=== PATIENT | female | born 1980 | race Caucasian/White ===

== ENCOUNTER 2021-09-15 07:06 | Outpatient (CLI) | payer OTHER, SELFPAY ==
--- NOTE | ~2021-09-15 | MM_ITS ---
EXAMINATION: MM screening [facility] w [facility] HISTORY: Baseline screening mammogram TECHNIQUE: Craniocaudal and mediolateral oblique 3-D tomosynthesis images were obtained and synthetic 2-D images were generated. CAD analysis was submitted and interpreted. COMPARISON: None, baseline BREAST PARENCHYMAL COMPOSITION: There are scattered areas of fibroglandular density. FINDINGS: There is no evidence of suspicious mass, calcification, or architectural distortion to sugg est malignancy in either breast. IMPRESSION: 1. No mammographic evidence of malignancy. 2. Recommend routine screening mammography in one year. BI-RADS Category 1: Negative Reviewed, dictated and finalized at location A. 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
== END 2021-09-15 07:07 | disposition home or self-care (01) ==
LOC: CHSIMG 07:09
PROVIDERS: PCP Internal Medicine; Visit Provider Obstetrics & Gynecology
DX: Z12.31 Encounter for screening mammogram for malignant neoplasm of breast (principal)
CPT/HCPCS: 77063; 77067

== ENCOUNTER 2022-11-28 07:16 | Outpatient (CLI) | payer OTHER, SELFPAY ==
--- NOTE | ~2022-11-28 | MM_ITS ---
EXAMINATION: MM screening [facility] w [facility] HISTORY: Screening mammogram TECHNIQUE: Craniocaudal and mediolateral oblique 3-D tomosynthesis images were obtained and synthetic 2-D images were generated. CAD analysis was submitted and interpreted. COMPARISON: 09/15/2021 BREAST PARENCHYMAL COMPOSITION: There are scattered areas of fibroglandular density. FINDINGS: No suspicious mass, calcification, or architectural distortion are identified in either [place] ast to suggest malignancy. There has been no suspicious interval change. IMPRESSION: 1. No mammographic evidence of malignancy. 2. Recommend routine screening mammography in one year. BI-RADS Category 1: Negative Reviewed, dictated and finalized at location A.
== END 2022-11-28 07:17 | disposition home or self-care (01) ==
LOC: CHSIMG 07:18
PROVIDERS: PCP Internal Medicine; Visit Provider Internal Medicine
DX: Z12.31 Encounter for screening mammogram for malignant neoplasm of breast (principal)
CPT/HCPCS: 77063; 77067

== ENCOUNTER 2024-08-14 08:08 | Outpatient (CLI) | payer OTHER, SELFPAY ==
--- NOTE | ~2024-08-14 | MM_ITS ---
EXAMINATION: MM screening [facility] BI w keturah HISTORY: Screening TECHNIQUE: Craniocaudal and mediolateral oblique 3-D tomosynthesis images were obtained and synthetic 2-D images were generated. CAD analysis was submitted and interpreted. COMPARISON: Comparison to multiple prior studies sequentially, with oldest reviewed study dated 09/2021. BREAST PARENCHYMAL COMPOSITION: Not Dense: The breasts are almost entirely fatty. FINDINGS: There is no evidence of suspicious mass, calcification, or architectural distortion to sugg est malignancy in either breast. There has been no suspicious interval change. IMPRESSION: 1. No mammographic evidence of malignancy. 2. Recommend routine screening mammography in one year. BI-RADS Category 1: Negative Reviewed, dictated and finalized at location A. 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
== END 2024-08-14 08:09 | disposition home or self-care (01) ==
LOC: CHSIMG 08:11
PROVIDERS: PCP Internal Medicine; Visit Provider Internal Medicine
DX: Z12.31 Encounter for screening mammogram for malignant neoplasm of breast (principal)
CPT/HCPCS: 77063; 77067

== ENCOUNTER 2024-09-22 15:26 | Outpatient (CLI) | payer OTHER, SELFPAY ==
--- NOTE | ~2024-09-22 | XR_ITS ---
XR abdomen/kub 1V Ordering provider: Althea Mccollum, CHASSIS ENGINEER History: . abdominal pain . Comparison: None. FINDINGS: BOWEL: Nonobstructive bowel gas pattern. ORGANOMEGALY: None. SIGNIFICANT PATHOLOGIC CALCIFICATIONS: Multiple stones in the right kidney. OTHER: No free air is seen under the diaphragm. IMPRESSION: NO ACUTE ABDOMINAL FINDINGS. Multiple stones in the right kidney. Reviewed, dictated and finalized at location A.
[2024-09-22 15:53] LABS: Basophils Absolute Auto 0.09 K/mm3 (0.00-0.10); Basophils Percent Auto 0.7 % (0.0-1.0); Eosinophils Absolute Auto 0.56 K/mm3 (0.02-0.50); Eosinophils Percent Auto 4.1 % (1.0-6.0); Hematocrit 41.9 % (35.0-49.0); Hemoglobin 13.8 g/dL (12.0-15.0); Immature Granulocyte Absolute 0.11 K/mm3 (0.00-0.00); Immature Granulocyte Percent A 0.8 % (0.0-0.0); Lymphocytes Absolute Auto 2.93 K/mm3 (1.10-4.50); Lymphocytes Percent Auto 21.4 % (18.0-42.0); Mean Corpuscular HGB Conc 32.9 g/dL (32-36); Mean Corpuscular Hemoglobin 30.8 pg (27.0-31.0); Mean Corpuscular Volume 93.5 fL (78.0-102.0); Mean Platelet Volume 10.9 fl (9.2-11.8); Monocytes Absolute Auto 0.76 K/mm3 (0.10-0.90); Monocytes Percent Auto 5.6 % (2.0-11.0); Neutrophils Absolute Auto 9.22 K/mm3 (1.70-7.20); Neutrophils Percent Auto 67.4 % (50.0-70.0); Platelet Count Result 361 K/mm3 (150-420); Red Blood Count 4.48 M/mm3 (4.20-5.40); Red Cell Distribution Width 13.2 % (11.6-14.4); White Blood Count 13.7 K/mm3 (4.8-10.8)
[2024-09-22 16:07] LABS: Alanine Aminotransferase 34 U/L (14-59); Alkaline Phosphatase 87 U/L (46-116); Anion Gap 8 mmol/L (4-12); Aspartate Amino Transferase 20 U/L (15-37); Bilirubin,Total 0.3 mg/dL (0.00-1.00); Blood Urea Nitrogen 15 mg/dL (7-18); Calcium 9.6 mg/dL (8.5-10.1); Carbon Dioxide 30 mmol/L (21-32); Chloride 103 mmol/L (98-108); Estimated Glomerular Filt Rate > 60; Glucose 91 mg/dL (70-99); Osmolality Calculated 292 mOsm/kg (285-295); Potassium 3.5 mmol/L (3.5-5.1); Sodium 141 mmol/L (136-145); Total Protein 7.6 g/dL (6.4-8.2)
== END 2024-09-22 15:27 | disposition home or self-care (01) ==
PROVIDERS: PCP Internal Medicine; Visit Provider Nurse Practitioner Family
DX: R10.9 Unspecified abdominal pain (principal); N20.0 Calculus of kidney
CPT/HCPCS: 36415; 74018; 80053; 85025

== ENCOUNTER 2024-09-22 16:38 | Emergency (ER) | payer OTHER, SELFPAY ==
--- NOTE | ~2024-09-22 | CT_ITS ---
EXAMINATION: CT abdomen pelvis w con DATE: 09/22/2024 17:43 INDICATION: left suprapubic abdominal pain TECHNIQUE: Computed tomography (CT) of the abdomen and pelvis was performed with intravenous contrast . Automated exposure control and iterative reconstruction technique were employed. The dose-length pr oduct was 1613.97 mGy-cm. COMPARISON: None. FINDINGS: Lower thorax: Unremarkable Liver: Enlarged. Biliary/Gallbladder: Gallbladder is normal. No bile duct dilation. Pancreas: No mass or duct dilation. Spleen: Normal. Adrenals:No mass. Kidneys: No suspicious mass, obstructing stone, or hydronephrosis. Multiple nonobstructing bilateral renal calculi measuring up to 6 mm on the left and 11 mm on the right. GI tract: No small or large bowel dilation. Short segment, somewhat eccentric wall thickening at the junction of the descending colon and sigmoid colon with surrounding pericolonic inflammatory change a nd a possible associated with inflamed diverticulum. A few scattered diverticuli are noted elsewhere in the colon. Right lower quadrant surgical clips. Appendix not confidently visualized, likely surgic ally absent. Mesentery/Peritoneum: No ascites, mass, or free air. Retroperitoneum: No mass. Pelvis: Pelvic organs are within normal limits. 3.1 cm simple appearing left ovarian cyst. Soft Tissues: 3.1 cm irregular soft tissue density in the deep subcutaneous fat over the right lower abdomen. Bones: No acute osseous finding. IMPRESSION: Hepatomegaly. Bilateral nephrolithiasis without evidence of obstructive uropathy. Possible mild diverticulitis at the junction of the descending colon and sigmoid colon. Recommend rad iographic follow-up after appropriate therapy to ensure resolution and consider colonoscopy referral to exclude a mass lesion. 3.1 cm irregular soft tissue density in the deep subcutaneous fat of the right lower quadrant of unce rtain clinical significance, may represent a hematoma, deep injection granuloma, inflamed lymph node, or other lesion Reviewed, dictated and finalized at location K. IMPRESSION: Hepatomegaly. Bilateral nephrolithiasis without evidence of obstructive uropathy. Possible mild diverticulitis at the junction of the descending colon and sigmoi d colon. Recommend radiographic follow-up after appropriate therapy to ensure r esolution and consider colonoscopy referral to exclude a mass lesion. 3.1 cm irregular soft tissue density in the deep subcutaneous fat of the right lower quadrant of uncertain clinical significance, may represent a hematoma, de ep injection granuloma, inflamed lymph node, or other lesion
[2024-09-22 16:42] VITALS: BP 145/86; PULSE 82; RESP 20; TEMP 36.6; O2SAT 98
--- NOTE | 2024-09-22 16:49 | ED.ABDPAIN ---
HPI - Abdominal Pain General Chief Complaint: Abdominal Pain Stated Complaint: abd pain Time Seen by Provider: 09/22/24 16:46 Source: patient Mode of arrival: ambulatory Limitations: no limitations History of Present Illness HPI narrative: 44 year old female presents to the Emergency Department at the direction of her PCP for further evaluation /CT. Patient has had left suprapubic abdominal pain for 10 days. Pain has been intermittent. No associated symptoms. No nausea, vomiting, diarrhea, constipation, urinary tract symptoms. Patient had OP labs today, but unable to get CT due to insurance regulations. Here for CT. MD elicited complaint: abdominal pain Pertinent past history: none Onset (ago): day(s) (10) Pain Consistency: intermittent Location: LLQ Severity: moderate Quality: sharp Radiation: none Migration to: no migration Exacerbating factors: nothing Relieving factors: nothing Related Data Patient : No Home Medications ?Medication ?Instructions ?Recorded ?Confirmed ?Last Taken ?Type atorvastatin 10 mg tablet 10 mg PO DAILY 09/22/24 Unknown History fenofibrate 160 mg tablet 160 mg PO DAILY 09/22/24 Unknown History losartan 100 1 tablet PO DAILY 09/22/24 Unknown History mg-hydrochlorothiazide 12.5 mg tablet Allergies Allergy/AdvReac Type Severity Reaction Status Date / Time No Known Allergies Allergy Unverified 09/22/24 16:56 Review of Systems Review of Systems: All systems reviewed & are unremarkable except as noted in HPI and below Constitutional: Constitutional: Reports as per HPI, Denies chills and Denies fever(s) Eyes: Eyes: Reports as per HPI ENT: Reports system reviewed and no additional complaints, except as documented Cardiovascular: Cardiovascular: Reports as per HPI and Denies chest pain Respiratory: Respiratory: Reports as per HPI, Denies chest congestion, Denies cough and Denies dyspnea Gastrointestinal: Gastrointestinal: Reports as per HPI, Reports abdominal pain (left suprapubic), Denies constipation, Denies diarrhea, Denies nausea and Denies vomiting Genitourinary: Genitourinary: Reports no additional female genitourinary complaints, Denies dysuria and Denies flank pain Musculoskeletal: Musculoskeletal: Reports no additional musculoskeletal complaints Integumentary/Breasts: Skin/Breast: Reports system reviewed and no additional complaints, except as docu Neurologic: Reports system reviewed and no additional complaints, except as documented [facility] Family History Family History Other Cerebrovascular accident Family history of cardiovascular disease Hypertension Social History Social History Smoking status: Current every day smoker Alcohol intake: current Exam Const: General: healthy appearing Nutritional Appearance: well nourished Orientation/consciousness: patient oriented x3 Limitations: no limitations HENMT: Head: normal to inspection Eyes: Pupils: Equal, round and reactive pupils present EOM: EOMs intact bilaterally Direct Ophthalmoscopy: no photophobia Neck: Neck: normal visual inspection Chest: Chest palpation & inspection: normal inspection of the chest Resp: Effort & Inspection: normal respiratory effort Auscultation: clear to auscultation bilaterally Cardio: Rate: regular rate Rhythm: regular rhythm GI: Inspection: non-distended GI Palp: Yes Soft to palpation, Yes Tenderness to palpation present (GI) (localized to left suprapubic region), No Guarding due to palpation present (GI), No Palpable mass present and No Rebound tenderness present Auscultation: normal bowel sounds : General: Yes bladder normal to palpation Back/Spine/Pelvis: Back: no CVA tenderness Skin: General skin exam: normal color Rashes: no rashes Neuro: General: patient oriented x3 Other: grossly normal Extrem: General: normal to inspection Psych: Mental Status: mental status grossly normal Course Course Emergency Course: 44 y/o female presents to the ED c/o L suprapubic abdominal pain for 10 days. Pain intermittent. No associated symptoms. Had OP labs done today, but unable to get CT OP. PE: localized tenderness L suprapubic region, o/w unremarkable OP Labs: CBC: H/H 13.8/41.9, Plt 361; wbc 13.7 with 67 S, 21 L, 6 M CMP: Na 141, K 3.5, Cl 103, CO2 30, Glc 91, BUN 15, Cr 0.68; LFT's normal KUB: multiple stones in R kidney ED Labs: UA: 3-5 rbc, 1+ blood, 1+ bact UPreg: negative CT Abd/Pelvis: probable diverticulitis at jct of descending and sigmoid colon. 3.1 cm irreg soft tissue density deep SQ fat RLQ Tx: saline lock *reviewed and discussed results with patient. Discussed further management. Patient voices understanding and agreement Rx and Instructions Vital Signs Vital signs: Vital Signs Temperature 36.6 C 09/22/24 16:42 Pulse Rate 82 09/22/24 16:42 Respiratory Rate 20 09/22/24 16:42 Blood Pressure 145/86 H 09/22/24 16:42 Pulse Oximetry 98 09/22/24 16:42 Oxygen Delivery Room Air 09/22/24 16:42 Temperature 36.6 C 09/22/24 16:42 Pulse Rate 82 09/22/24 16:42 Respiratory Rate 20 09/22/24 16:42 Blood Pressure 145/86 H 09/22/24 16:42 Pulse Oximetry 98 09/22/24 16:42 Oxygen Delivery Room Air 09/22/24 16:42 MDM - Abdominal Pain Lab Data Labs: Lab Results 09/22/24 Range/Units 17:00 Urine Color Yellow (Yellow) Urine Appearance Clear (Clear) Urine pH 6.0 (5.0-8.0) Ur Specific [place] >= 1.030 H (1.010-1.020) Urine Protein Negative (Negative) Urine Glucose (UA) Negative (Negative) Urine Ketones Negative (Negative) Ur Blood (Man) 1+ H (Negative) Urine Nitrate Negative (Negative) Urine Bilirubin Negative (Negative) Urine Urobilinogen 0.2 (0.2-1.0) mg/dL Ur Leukocyte Esterase Negative (Negative) Urine RBC 3-5 H (0-2) /hpf Urine WBC None seen (0-3) /hpf Ur Squamous Epith Cells Few (Few) /hpf Urine Bacteria 1+ H (None) /hpf Urine Test Negative Imaging Data Radiologist's impression: ITS Impressions Abdomen/Pelvis CT 09/22/24 17:56 IMPRESSION: Hepatomegaly. Bilateral nephrolithiasis without evidence of obstructive uropathy. Possible mild diverticulitis at the junction of the descending colon and sigmoid colon. Recommend radiographic follow-up after appropriate therapy to ensure resolution and consider colonoscopy referral to exclude a mass lesion. 3.1 cm irregular soft tissue density in the deep subcutaneous fat of the right lower quadrant of uncertain clinical significance, may represent a hematoma, deep injection granuloma, inflamed lymph node, or other lesion Discharge Plan Discharge Clinical Impression: Diverticulitis Patient Disposition: Home, Self-Care Condition: Stable Instructions: Antibiotic Form, Diverticulitis (ED) Additional Instructions: Take medications as prescribed Follow up Primary Care Physician Patient Language: Citizen Of [place] Prescriptions: New metronidazole 500 mg tablet 500 mg PO Q8H Qty: 30 0RF ciprofloxacin HCl [Cipro] 500 mg tablet 500 mg PO Q12H Qty: 20 0RF hydrocodone-acetaminophen 10-325 mg tablet 1 tablet PO Q6H PRN (Reason: pain) Qty: 20 0RF No Action atorvastatin 10 mg tablet 10 mg PO DAILY fenofibrate 160 mg tablet 160 mg PO DAILY losartan-hydrochlorothiazide 100-12.5 mg tablet 1 tablet PO DAILY Follow-up/Referrals: Dinesh Pierre MD [Primary Care Provider] - Time of Disposition: 18:30
[2024-09-22 17:07] LABS: Add Urine Microscopic? YES; Appearance Urine Clear (Clear); Bilirubin Urine Negative (Negative); Blood Urine 1+ (Negative); Color Urine Yellow (Yellow); Glucose Urine UA Negative (Negative); Ketones Urine Negative (Negative); Leukocyte Esterase Ur Negative (Negative); Nitrate Urine Negative (Negative); Protein Urine Negative (Negative); Specific Grav Ur >= 1.030 (1.010-1.020); Urobilinogen Urine 0.2 mg/dL (0.2-1.0)
[2024-09-22 17:09] LABS: Bacteria Urine 1+ /hpf; Squamous Epithelial Cell Urine Few /hpf (Few); WBC Urine None seen /hpf (0-3)
[2024-09-22 17:10] LABS: Pregnancy On Board Control Positive; Urine Pregnancy Test Negative
[2024-09-22 18:33] VITALS: BP 130/86; PULSE 84; RESP 16; TEMP 36.8; O2SAT 97
== END 2024-09-22 18:35 | disposition home or self-care (01) ==
PROVIDERS: Emergency Provider Emergency Medicine; PCP Internal Medicine
DX: K57.92 Diverticulitis of intestine, part unspecified, without perforation or abscess without bleeding (principal); F17.200 Nicotine dependence, unspecified, uncomplicated; Z79.899 Other long term (current) drug therapy
CPT/HCPCS: 74177; 81001; 81025; 99284; Q9967

== ENCOUNTER 2025-02-02 02:16 | Emergency (ER) | payer OTHER, SELFPAY ==
--- NOTE | ~2025-02-02 | CT_ITS ---
EXAMINATION: CT abdomen pelvis wo con DATE: 02/02/2025 03:19 INDICATION: Burning with urination TECHNIQUE: Computed tomography (CT) of the abdomen and pelvis was performed without intravenous contr ast. The dose-length product was 1094.02 mGy-cm. Automated exposure control and iterative reconstruct ion technique were employed. COMPARISON: CT dated 09/22/2024 FINDINGS: Lung bases unremarkable. No significant pleural or pericardial effusion. Heart size normal. No significant vascular abnormality. There are multiple nonobstructing bilateral renal stones. There is minimal right hydronephrosis. There is mild proximal periureteral stranding. Cannot excluded asce nding urinary tract infection. No lymphadenopathy. No significant vascular abnormality. Liver, spleen, pancreas, adrenal glands are unremarkable. Nonobstructive bowel gas pattern. No abnorm al pelvic masses or fluid collections. Irregular nodular soft tissue right inguinal region involving the subcutaneous tissues measuring up to 2.6 cm, slightly decreased compared with prior study. Differ ential diagnosis includes posttraumatic hematoma, injection granuloma, reactive lymph node. No acute osseous abnormality. IMPRESSION: 1. Nonobstructing bilateral nephrolithiasis. Mild stranding surrounding the proximal ureter. Cannot e xclude ascending urinary tract infection. Clinically correlate. Reviewed, dictated and finalized at location A. IMPRESSION: 1. Nonobstructing bilateral nephrolithiasis. Mild stranding surrounding the pro ximal ureter. Cannot exclude ascending urinary tract infection. Clinically lula elate.
[2025-02-02 02:16] VITALS: BP 149/97; PULSE 95; RESP 16; TEMP 35.8; O2SAT 97
--- OUTSIDE RECORDS SUMMARY | 2025-02-02 02:21 | XMS_ITS ---
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 Unavailable JOSE GUTIERERS Primary Unavailable Immunization Immunization Date Status Additional Notes Code Code System influenza, unspecified formulation 04/08/2018 Completed 88 CVX Tdap 05/10/2022 Completed 115 CVX Influenza, split virus, trivalent, preservative 04/16/2014 Completed 141 CVX Influenza, split virus, quadrivalent, PF 05/10/2022 Completed 150 CVX Results TEST URINE - Colle ct Date/Time: 10/29/2024 08:43 [facility] ID: [id number] [address] [place] [address], [id number] LOINC: Test Value Unit Reference Range Code Code System Flag URINE PREG NEGATIVE Social History Type Status Start Date End Date Code Code Syst em Smoking History Unknown if ever smoked [address] Sex Female Vital Signs Vital Sign Value Unit [place] Value [place] Unit Date/Time Recent/Initial? Code Code System Body Mass Index 42.77 kg/m2 10/29/2024 08:45 Most Recent 97165 -5 LOINC Body Mass Index 42.77 kg/m2 10/21/2024 13:56 Initial 73774 -5 LOINC Systolic Blood Pressure 128 mm[Hg] 10/29/2024 08:51 Initial 8480- 6 LOINC Diastolic Blood Pressure 80 mm[Hg] 10/29/2024 08:51 Initial 8462- 4 LOINC Body Surface Area 2.37 m2 10/29/2024 08:45 Most Recent 3140- 1 LOINC Body Surface Area 2.37 m2 10/21/2024 13:56 Initial 3140- 1 LOINC Height 167.640 0 cm 66.00 in 10/29/2024 08:45 Most Recent 8302- 2 LOINC Height 167.640 0 cm 66.00 in 10/21/2024 13:56 Initial 8302- 2 LOINC O2 Saturation 100 % 2024 08:51 Initial 06238 -5 LOINC Pulse 87.0 /min 10/29/2024 08:51 Initial 8867- 4 LOINC Respiration 18 /min 10/30/19 08:51 Initial 9279- 1 LOINC Temperature 36.7 Leigh 98.0 F 10/30/19 08:51 Initial 8310- 5 LOINC Weight 120.20 kg 265.00 lbs 10/29/2024 08:45 Most Recent 05230 -7 LOINC Weight 120.20 kg 265.00 lbs 10/21/2024 13:56 Initial 68853 -7 [facility] Medications Medication Start Date End Date Route Frequency Dose Code Code System Medication Instructions Home Meds Atorvastatin Calcium 10MG Oral Tablet 10/29/2024 Unknown ORAL ONCE A DAY 10 MILLIGRAMS 584296 RxNorm TAKE 10 MILLIGRAMS ORAL ONCE A DAY Cetirizine 10MG Oral Tablet 10/29/2024 Unknown ORAL NEEDED 10 MILLIGRAMS 2663874 RxNorm TAKE 10 MILLIGRAMS ORAL NEEDED Fenofibrate 160MG Oral Tablet 10/29/2024 Unknown ORAL ONCE A DAY 160 MILLIGRAMS 853072 RxNorm TAKE 160 MILLIGRAMS ORAL ONCE A DAY Fiber Gummies 2GM Oral Tablet, Chewable 10/29/2024 Unknown ORAL 8 MILLIGRAMS RxNorm TAKE 8 MILLIGRAMS ORAL Fluticasone Prop 0.05MG/1Actuat ion Nasal [place] 10/29/2024 Unknown NASAL ONCE A DAY 1 unit(s) RxNorm 1 EACH NASAL ONCE A DAY Losartan Potassium-hydr oCHLOROthiazid e 100MG-12.5MG Oral Tablet 10/29/2024 Unknown ORAL ONCE A DAY 1 unit(s) 448822 RxNorm TAKE 1 EACH ORAL ONCE A DAY Hospital Discharge Instructions Should you have any questions prior to discharge, please contact a member of your healthcare team. If you have left the hospital and have any questions, please contact your primary care physician. Reason For Referral No Data Found Procedures Procedure Name Date Status Code Code Syste m APPENDECTOMY completed [id number] SNOMEDCT Hernia repair completed 19016579 SNOMEDCT History of tubal ligation completed 487914997 SNOMEDCT Colonoscopy, flexible; diagn ostic, including collection of specimen(s) by 10/29/2024 completed 45966 CPT History of tonsillectomy completed 150926782 SNOMEDCT DELIVERY completed 63861 CPT Anesthesia for lower intesti nal endoscopic procedures, endoscope introduce 10/29/2024 completed 58209 CPT Allergies and Adverse Reactions Allergy Substance Reaction Severity Start Date Concern Status Co de Code System No Known Allergies Active 831289135 SNO MED-CT Plan of Treatment Colonoscopy 10/29/2024 Encounters Encounter Diagnosis Start Date Code Code Sys tem Abnormal findings on diagnos tic imaging of other parts of digestive tract 10/29/2024 SNOMED-CT Personal Care Team Section Performer Name Performer Role Active Date Inactive Da brandin Church PCP - Primary care physician 2024-10-26 2024-10-29 NENITA GARCIA PCP - Primary care physician 2024-10-29 Procedures Notes
--- NOTE | 2025-02-02 02:36 | ED_ITS ---
HPI - Female Genitourinary General Chief complaint: Urogenital-Female Stated complaint: urogenital Time Seen by Provider: 02/02/25 02:25 Source: patient Mode of arrival: ambulatory Limitations: no limitations History of Present Illness HPI Narrative: Patient is a 45-year-old female with urinary symptoms over the past week. He is having burning of dysuria for the past week. She saw another doctor in this past week and they gave her Macrobid for UTI. Symptoms did proceed to get better and as of today, the symptoms have returned if not worse. pain is associated in the right lower back. Patient has chronic microscopic hematuria on urinalysis. MD elicited complaint: dysuria and UTI Pertinent past history: other ( Kidney stones without acute events, hypertension) Onset (ago): week(s) ( 1) Location of symptoms: urethra Severity: moderate Female Urogenital Radiation: Suprapubic Severity scale (1-10): 4 Quality of pain: sharp and burning Consistency: constant Vaginal discharge: none Vaginal bleeding: none Urinary symptoms: Dysuria Exacerbating factors: urination Relieving factors: none Associated symptoms: denies other symptoms Treatment prior to arrival: other ( Macrobid) Patient : No Related Data Home Medications ?Medication ?Instructions ?Recorded ?Confirmed ?Last Taken ?Type atorvastatin 10 mg tablet 10 mg PO DAILY 09/22/24 12/26/24 Unknown History fenofibrate 160 mg tablet 160 mg PO DAILY 09/22/24 12/26/24 Unknown History losartan 100 1 tablet PO DAILY 09/22/24 12/26/24 Unknown History mg-hydrochlorothiazide 12.5 mg tablet Allergies Allergy/AdvReac Type Severity Reaction Status Date / Time No Known Allergies Allergy Verified 02/02/25 02:50 Review of Systems 2 Review of Systems: All systems reviewed & are unremarkable except as noted in HPI and below Constitutional: Constitutional: Reports no additional constitutional complaints Eyes: Eyes: Reports no additional eye complaints ENT: Reports system reviewed and no additional complaints, except as documented Cardiovascular: Cardiovascular: Reports no additional cardiovascular complaints Respiratory: Respiratory: Reports no additional respiratory complaints Gastrointestinal: Gastrointestinal: Reports no additional gastrointestinal complaints Genitourinary: Genitourinary: Reports no additional female genitourinary complaints Musculoskeletal: Musculoskeletal: Reports no additional musculoskeletal complaints Integumentary/Breasts: Skin/Breast: Reports system reviewed and no additional complaints, except as docu Neurologic: Reports system reviewed and no additional complaints, except as documented Psychiatric: Psychiatric: Reports no additional psychiatric complaints Endocrine: Endocrine: Reports no additional endocrine complaints Hematologic/Lymphatic: Hematologic/Lymphatic: Reports no additional hematologic/lymphatic complaints Allergic/Immunologic: Allergic/Immunologic: Reports no additional allergic/immunologic complaints PMFSH Surgical History Surgical History Hx of colonoscopy 2024 Hx of hernia repair 2016 Hx of section 2012 Hx of appendectomy 1995 Hx of tonsillectomy 1984 Family History Family History Mother Hypertension Sibling Hypertension Grandparent Hypertension Heart disease Other Cerebrovascular accident Family history of cardiovascular disease Malignant neoplasm of prostate Social History Social History Smoking status: Current every day smoker Tobacco type: cigarettes Alcohol intake: current Drinks per week: 14 Substance use: never Substance use type: does not use Do You Feel Safe in your Home?: Yes Lack of Transportation: No Lack of Food: Never True Current Housing: I Have Housing Concerned About Future Housing: No Difficulty Paying Gas/Electric Bills: No Difficulty Paying for Meds: No Currently Unemployed: No Education: Bachelor's Degree Difficulty w/ Childcare or Family Care: No Living arrangements: with family Occupation/Education: occupation Agree to blood products: Yes Exam 2 Const: General: healthy appearing Nutritional Appearance: well nourished Orientation/consciousness: patient oriented x3 HENMT: Head: normal to inspection Ears: external ears normal F kimberly/Nose/Sinus: Normal external nose present Eyes: Conjunctivae: conjunctivae normal Pupils: Equal, round and reactive pupils present EOM: EOMs intact bilaterally Neck: Neck: normal visual inspection Chest: Chest palpation & inspection: normal inspection of the chest Resp: Effort & Inspection: normal respiratory effort and not labored A uscultation: clear to auscultation bilaterally and no crackles Cardio: Rate: regular rate Rhythm: regular rhythm Heart sounds: no murmurs GI: Inspection: non-distended GI Palp: Yes Soft to palpation and No Tenderness to palpation present (GI) Auscultation: normal bowel sounds : General: Yes bladder normal to palpation Back/Spine/Pelvis: Back: no CVA tenderness Skin: General skin exam: normal color Rashes: no rashes Wounds: no wounds Neuro: General: patient oriented x3, moves all extremities and no meningeal signs Cranial nerves: Yes Nystagmus not present Extrem: General: normal to inspection Psych: Appearance: grossly normal Mental Status: mental status grossly normal Affect: normal affect Course Vital Signs Vital signs: Vital Signs Temperature 35.8 C L 02/02/25 02:16 Pulse Rate 95 02/02/25 02:16 Respiratory Rate 16 02/02/25 02:16 Blood Pressure 149/97 H 02/02/25 02:16 Pulse Oximetry 97 02/02/25 02:16 Oxygen Delivery Room Air 02/02/25 02:16 Temperature 35.8 C L 02/02/25 02:16 Pulse Rate 95 02/02/25 02:16 Respiratory Rate 16 02/02/25 02:16 Blood Pressure 149/97 H 02/02/25 02:16 Pulse Oximetry 97 02/02/25 02:16 Oxygen Delivery Room Air 02/02/25 02:16 MDM - Female Genitourinary MDM Narrative Medical decision making narrative: Patient is a 45-year-old female with urinary symptoms for the past week in specifically today after use of Macrobid without good results. Urinalysis and urine preg. Levaquin and Pyridium. Rocephin IM. Lab Data Attestation: I reviewed the patient's lab results. 02/02/25 03:38 02/02/25 03:38 Labs: Lab Results 02/02/25 02/02/25 02/02/25 Range/Units 02:22 02:38 03:38 WBC 15.3 H (4.8-10.8) K/mm3 RBC 4.75 (4.20-5.40) M/mm3 Hgb 15.0 (12.0-15.0) g/dL Hct 43.3 (35.0-49.0) % MCV 91.2 (78.0-102.0) fL MCH 31.6 H (27.0-31.0) pg MCHC 34.6 (32-36) g/dL RDW 12.6 (11.6-14.4) % Plt Count 315 (150-420) K/mm3 MPV 10.7 (9.2-11.8) fl Immature Gran % (Auto) 0.8 H (0.0-0.0) % Neut % (Auto) 72.9 H (50.0-70.0) % Lymph % (Auto) 15.1 L (18.0-42.0) % [place] % (Auto) 5.7 (2.0-11.0) % Eos % (Auto) 4.7 (1.0-6.0) % Baso % (Auto) 0.8 (0.0-1.0) % Lymph # (Auto) 2.32 (1.10-4.50) K/mm3 [place] # (Auto) 0.87 (0.10-0.90) K/mm3 Eos # (Auto) 0.72 H (0.02-0.50) K/mm3 Baso # (Auto) 0.12 H (0.00-0.10) K/mm3 Abs Immat Gran (auto) 0.12 H (0.00-0.00) K/mm3 Absolute Neuts (auto) 11.17 H (1.70-7.20) K/mm3 Absolute Nucleated RBC 0.00 (0.00-0.00) K/mm3 Nucleated RBC % 0.0 (0-0.0) % Sodium 135 L (137-145) mmol/L Potassium 3.4 (3.4-5.0) mmol/L Chloride 103 (98-107) mmol/L Carbon Dioxide 24 (22-30) mmol/L Anion Gap 8 (4-12) mmol/L BUN 14 (7-17) mg/dL Creatinine 0.72 (0.7-1.0) mg/dL Estim Creat Clear Calc 112 ml/min Estimated GFR > 60 (59 - ) Glucose 98 (65-110) mg/dL Calculated Osmolality 280 L (285-295) mOsm/kg Lactic Acid 2.2 H (0.4-2.0) mmol/L Calcium 9.7 (8.4-10.2) mg/dL Total Bilirubin 0.7 (0.2-1.3) mg/dL AST 40 H (14-36) U/L ALT 40 H (6-35) U/L Alkaline Phosphatase 76 (38-126) U/L Total Protein 7.7 (6.3-8.2) g/dL Albumin 4.6 (3.5-5.1) g/dL Urine Color Cancelled Dark yellow Urine Appearance Cancelled Turbid A Urine pH Cancelled 6.0 Ur Specific [place] Cancelled >= 1.030 H Urine Protein Cancelled 3+ H Urine Glucose (UA) Cancelled Negative Urine Ketones Cancelled Trace H Ur Blood (Man) Cancelled 2+ H Urine Nitrate Cancelled Positive H Urine Bilirubin Cancelled Negative Urine Urobilinogen Cancelled 0.2 Ur Leukocyte Esterase Cancelled Leukocyte Esterase Rfl 2+ H (Negative) SUNIL/UL Urine RBC Cancelled >100 H Urine WBC Cancelled >100 Urine WBC Clumps Cancelled Present H Ur Squamous Epith Cells Cancelled Ur Transition Epith Cell Cancelled Ur Renal Epithelial Cell Cancelled Romulo Biurate Crystals Cancelled Calcium Carbonate Cryst Cancelled Calcium Phosphate Cryst Cancelled Calcium Oxalate Crystal Cancelled Leucine Crystals Cancelled Cystine Crystals Cancelled Uric Acid Crystals Cancelled Triple Phos Crystals Cancelled Sulfonamide Crystals Cancelled Cholesterol Crystals Cancelled Tyrosine Crystals Cancelled Hippuric Acid Crystals Cancelled Bilirubin Crystals Cancelled Amorphous Sediment Cancelled Heavy H Other Sediment Cancelled Urine Bacteria Cancelled 4+ H Urine Casts Cancelled Cellular Casts Cancelled Epithelial Casts Cancelled Fatty Casts Cancelled Hyaline Casts Cancelled Granular Casts Cancelled Waxy Casts Cancelled Broad Casts Cancelled RBC Casts Cancelled WBC Casts Cancelled Urine Starch Cancelled Urine Mucus Cancelled Heavy H Urine Trichomonas Cancelled Urine Yeast (Budding) Cancelled Ur Oval Fat Bodies Cancelled Urine Test Negative Sperm Presence Cancelled Imaging Data Attestation: I personally reviewed and interpreted this imaging study as follows: Radiologist's impression: CT scan of the abdomen and pelvis shows ureteritis on the right without hydronephrosis or stones Discharge Plan Discharge Clinical Impression: Ureteritis due to infection UTI (urinary tract infection) Qualifiers: Urinary tract infection type: acute cystitis Hematuria presence: with hematuria Qualified Code(s): N30.01 - Acute cystitis with hematuria Patient Disposition: Home Condition: Stable Instructions: Antibiotic Form, Urinary Tract Infection in Women (DC), Kidney Infection (ED) Patient Language: Spanish Prescriptions: New levofloxacin 750 mg tablet 750 mg PO DAILY Qty: 7 0RF phenazopyridine [Pyridium] 200 mg tablet 200 mg PO TID PRN (Reason: pain) 2 Days Qty: 6 0RF No Action atorvastatin 10 mg tablet 10 mg PO DAILY fenofibrate 160 mg tablet 160 mg PO DAILY losartan-hydrochlorothiazide 100-12.5 mg tablet 1 tablet PO DAILY Follow-up/Referrals: Dinesh Pierre MD [Primary Care Provider] - Time of Disposition: 04:34
[2025-02-02 02:52] LABS: Pregnancy On Board Control Positive
[2025-02-02 02:53] LABS: Appearance Urine Turbid (Clear)
[2025-02-02 02:54] LABS: Glucose Urine UA Negative (Negative); Nitrate Urine Positive (Negative); Specific Grav Ur >= 1.030 (1.010-1.020)
[2025-02-02 02:55] LABS: Add Urine Microscopic? YES; Leukocyte Esterase Ur 2+ LEU/UL (Negative)
--- NOTE | 2025-02-02 03:02 | PC.NURSE ---
ERP DR Mccarthy AT BEDSIDE PROVIDING PT UPDATE INCLUDING PLAN OF CARE AND RESULTS OF URINALYSIS.
--- NOTE | 2025-02-02 03:15 | PC.NURSE ---
PT RETURNED FROM IMAGING VIA WHEELCHAIR PER PATIENT MONITOR. AWAITING RESULTS. CALL LIGHT WITHIN REACH, RN MONITORING.
[2025-02-02 03:43] LABS: Hematocrit 43.3 % (35.0-49.0); Hemoglobin 15.0 g/dL (12.0-15.0); Immature Granulocyte Percent A 0.8 % (0.0-0.0); Lymphocytes Absolute Auto 2.32 K/mm3 (1.10-4.50); Mean Corpuscular HGB Conc 34.6 g/dL (32-36); Mean Corpuscular Hemoglobin 31.6 pg (27.0-31.0); Mean Corpuscular Volume 91.2 fL (78.0-102.0); Nucleated Red Blood Cells Absolute Auto 0.00 K/mm3 (0.00-0.00); Nucleated Red Blood Cells Perc 0.0 % (0-0.0); Platelet Count Result 315 K/mm3 (150-420); Red Blood Count 4.75 M/mm3 (4.20-5.40); White Blood Count 15.3 K/mm3 (4.8-10.8)
[2025-02-02 04:11] LABS: Alanine Aminotransferase 40 U/L (6-35); Albumin Level 4.6 g/dL (3.5-5.1); Alkaline Phosphatase 76 U/L (38-126); Anion Gap 8 mmol/L (4-12); Aspartate Amino Transferase 40 U/L (14-36); Bilirubin,Total 0.7 mg/dL (0.2-1.3); Blood Urea Nitrogen 14 mg/dL (7-17); Calcium 9.7 mg/dL (8.4-10.2); Carbon Dioxide 24 mmol/L (22-30); Chloride 103 mmol/L (98-107); Estimated CRCL calculation 112 ml/min; Estimated Glomerular Filt Rate > 60; Glucose 98 mg/dL (65-110); Osmolality Calculated 280 mOsm/kg (285-295); Potassium 3.4 mmol/L (3.4-5.0); Sodium 135 mmol/L (137-145); Total Protein 7.7 g/dL (6.3-8.2)
--- NOTE | 2025-02-02 04:24 | PC.NURSE ---
DR Mccarthy at patient bedside at this time providing update including results and plan of care.
[2025-02-02 04:35] VITALS: BP 128/85; PULSE 86; RESP 16; TEMP 36.9; O2SAT 96
[2025-02-02] MEDS: cefTRIAXone 1 GM, LIDOCAINE 1% LOCAL INJ 2.1 ML IM (04:39)
--- NOTE | 2025-02-04 12:33 | PC.NURSE ---
PRELIMINARY BLOOD CULTURE NO GROWTH DETECTED AT THIS TIME
--- NOTE | 2025-02-04 12:57 | PC.NURSE ---
PRELIMINARY URINE CULTURE POSITIVE FOR E COLI PT ON LEVAQUIN 750MG DAILY FOR [address] QURESHI WILL WAIT FOR SENSITIVITY REPORT TO MAKE ANY CHANGES
--- NOTE | 2025-02-05 12:25 | PC.NURSE ---
PRELIMINARY BLOOD CULTURE REPORT; NO GROWTH IN 24 HOURS.
--- NOTE | 2025-02-05 12:26 | PC.NURSE ---
FINAL URINE CULTURE REPORT; ESCHERICHIA COLI; PATIENT DISCHARGED ON LEVOFLOXACIN; NO CHANGE IN TREATMENT NEEDED PER DR. HUANG, CULTURE SUSCEPTIBLE
--- NOTE | 2025-02-06 12:21 | PC.NURSE ---
blood culture, preliminary, no growth
--- NOTE | 2025-02-09 12:57 | PC.NURSE ---
FINAL BLOOD CULTURE REPORT; NO GROWTH IN 5 DAYS.
== END 2025-02-02 04:56 | disposition home or self-care (01) ==
PROVIDERS: Emergency Provider Emergency Medicine; PCP Internal Medicine
DX: N28.89 Other specified disorders of kidney and ureter (principal); N30.01 Acute cystitis with hematuria; F17.210 Nicotine dependence, cigarettes, uncomplicated; Z11.3 Encounter for screening for infections with a predominantly sexual mode of transmission
CPT/HCPCS: 36415; 74176; 80053; 81001; 81025; 83605; 85025; 87491; 87591; 96372; 99284; J0696; J2003